=== PATIENT | male | born 1940 | race Caucasian/White ===

== ENCOUNTER 2016-11-23 00:19 | Emergency (ER) | payer OTHER ==
[2016-11-23 00:31] VITALS: TEMP 98.5; BMI 31.3
--- NOTE | 2016-11-23 00:46 | EDPRACDOC ---
- General Chief Complaint: Fall Stated Complaint: FALL: HEAD INJURY Information Source: Patient - History of Present Illness Onset: [employer] HPI: C/o fall onto back from squatting position and hitting head tonight. Two abrasions with mild swelling. Denies LOC, HERNADEZ, vision chnage, dizzyness, N/V, neuro deficits. Not taking blood thinner. Pain Severity: Reports: Mild Injuries/Pain Location: Reports: head Reason for Fall: Reports: tripped Loss of Consciousness: no loss of consciousness Associated Symptoms (Fall): Reports: denies symptoms Allergies/Adverse Reactions: Allergies No Known Allergies Allergy (Verified 11/23/16 00:31) Home Medications: Ambulatory Orders Acetaminophen Ex Str Tablet [TYLENOL EXTRA STRENGTH Tablet] 1,000 mg PO TID PRN 04/09/14 Albuterol Sulfate [Ventolin Hfa] 2 puff INH QID PRN 04/09/14 Amitriptyline HCl [Elavil] 25 mg PO HS 04/09/14 Cetirizine HCl [Zyrtec] 10 mg PO DAILY 04/09/14 Cholecalciferol [Vitamin D3 (cholecalciferol)] 1,000 units PO DAILY 04/09/14 Doxazosin Mesylate [Cardura] 8 mg PO HS 04/09/14 Lisinopril [Zestril] 40 mg PO DAILY 04/09/14 Ranitidine HCl [Zantac] 300 mg PO BID 04/09/14 Sertraline HCl [Zoloft] 50 mg PO QAM 04/09/14 Tolnaftate [Tinactin] 0 gm TOP BID PRN 04/09/14 Wool Alcoh/Min Oil/Martha/[place] [Eucerin Creme] 0 gm TOP BID 04/09/14 Atorvastatin Calcium [Lipitor] 10 mg PO HS #30 tablet 04/17/14 Ubidecarenone [Co Q10] 100 mg PO DAILY #100 capsule 04/17/14 Albuterol Sulfate [Proventil, Ventolin] 2.5 mg NEB QID PRN 10/02/14 Aspirin 325 mg PO DAILY 10/02/14 Atenolol [Tenormin] 100 mg PO BID 10/02/14 CloNIDine (Antihypertensive) [Catapres] 0.1 mg PO BID PRN 10/02/14 Docusate Sodium [Colace] 200 mg PO DAILY PRN 10/02/14 Guaifenesin [Robitussin] 2 tsp PO QID PRN 10/02/14 Guaifenesin/Dextromethorphan [Mucus Dm 600-30 mg Tablet] 1 each PO BID PRN 10/02 Ipratropium [place] 0.2 mg NEB QID PRN 10/02/14 Triamcinolone Acetonide [Nasacort] 2 spray GIL DAILY 10/02/14 Triamterene/Hydrochlorothiazid [Triamterene-Hctz 37.5-25 mg Tb] 1 tab PO DAILY 10/02/14 Verapamil [Calan SR] 360 mg PO DAILY 10/02/14 ED Past Medical History - History Reviewed Yes Nurses notes reviewed and agree except as marked - Patient Medical History Neurological History: Denies: Cerebrovascular Accident (TIA) Cardiac History: Reports: Hypertension, Hypercholesterolemia, Syncope (04/08/2014 , and now) Respiratory History: Reports: COPD GI/ History: Reports: Gastroesophageal Reflux, Ulcer Musculoskeletal History: Reports: Arthritis Psychological History: Reports: Depression. Denies: Substance Use Disorder - Family Medical History Reports: Hypertension (Mother, Father) - Social Medical History Smoking Status: Former smoker Social History: Denies: Substance Use Disorder EDM Review of Systems - Review of Systems ROS Negative Except as Marked: Yes All systems reviewed and were negative except as marked Integumentary: Wound (2 small superficial lacerations to posterior aspect of head, with mild swelling and tenderness. Bleeding controlled, no significant skin seperation.) - Physical Exam Constitutional: No apparent distress, Alert Oriented to: Time, Person, Place Last recorded Vital Signs: Last Vital Signs Temp 98.5 F 11/23/16 00:25 Pulse 73 11/23/16 00:25 Resp 18 11/23/16 00:36 BP 193/102 H 11/23/16 00:25 Pulse Ox 94 11/23/16 00:25 Oxygen Pulse Oxygen Saturation 94 O2 Device Room Air Oxygen Flow Rate Fraction of Inspired Oxygen ( FIO2) - HEENT Head: Normal Eye Exam: negative: Conjunctival Injection, Scleral Icterus Oropharynx: negative: Drooling ENT EAC: Normal TMJ: Normal Nose: No Symptoms Reported Neck: Normal HEENT Comment: Neck FROM without pain. No bony tenderness. 2 very small superficial lacerations on posterior head have mild swelling, bleeding controlled. - Respiratory/Cardiovascular Respiratory: Normal - CTA Cardiovascular: Normal - GI Tenderness: Non tender - Musculoskeletal Back: Normal Extremities: Normal - Integumentary Skin: Normal - Neurologic Memory Impaired: Normal Motor Function: Normal Cranial Nerve: Normal Cerebellar: Normal Mood Description: Normal Thought: Coherent Perception: Normal Neurologic Comment: neuro exam nml ED Injury/Fall Exam - Physical Exam Head Injury: lacerations (2 small superficial posterior aspect of head), swelling Extremity Exam: no evidence of injury Skin: Normal - [place] Coma Score Best Eye Response ([place]): (4) open spontaneously Best Verbal Response ([place]): (5) oriented Best Motor Response ([place]): (6) obeys commands [place] Total: 15 Decision Time to Discharge: 00:52 - Departure Disposition: law enforcement Condition: Stable Final Diagnosis: Fall with injury Qualifiers: Encounter type: initial encounter Qualified Code(s): W19.XXXA - Unspecified fall, initial encounter Instructions: RICE: Routine Care for Injuries Education/Counseling Given To: Patient Education/Counseling Given Regarding: Diagnosis, Treatment, Prognosis, Follow Up Referrals: None,No Provider [Primary Care Provider] - One Week Additional Instructions: Keep head clean and dry for at least 2 days. Steri-strips will come off on their own. Return to ED for any new or worsening symptoms.
[2016-11-23] MEDS ORDERED: 2-OCTYL CYANOACRYLATE PEN TOP ONE (00:47)
[2016-11-23 01:30] VITALS: BP 150/83; PULSE 70
== END 2016-11-23 01:29 | disposition home or self-care (01) ==
LOC: ED 00:19
DX: S09.90XA Unspecified injury of head, initial encounter (principal); W18.30XA Fall on same level, unspecified, initial encounter; Y93.9 Activity, unspecified
CPT/HCPCS: 99283; J3490